=== PATIENT | male | born 1955 | race Caucasian/White ===

== ENCOUNTER 2020-07-28 08:02 | Emergency (ER) | payer BC, MEDICARE ==
[2020-07-28] MEDS ORDERED: fentaNYL 100 MCG/2 ML SDV IVPUSH ONE ×3 (08:16→11:40)
[2020-07-28] MEDS ORDERED: Iopamidol 612 MG/ML 100 ML Bottle IVPUSH ONE (08:28)
[2020-07-28] MEDS ORDERED: HYDROmorphone 1 MG/ML Syringe IVPUSH ONE ×3 (08:37→10:54)
[2020-07-28 08:50] LABS: ANION GAP 12.4 mmol/L (10-20); CHLORIDE,CL 103 mmol/L (98-107); SODIUM,NA 137 mmol/L (136-145)
--- NOTE | 2020-07-28 08:51 | EDM.PDOC ---
ED HPI GENERAL MEDICAL PROBLEM - General Chief Complaint: Chest Pain Stated Complaint: CHEST PAIN Time Seen by Provider: 07/28/20 08:02 Source of Information: Reports: Patient, EMS History Limitations: Reports: No Limitations - History of Present Illness INITIAL COMMENTS - FREE TEXT/NARRATIVE: Patient presents to ER with complaints of acute onset of lower chest and upper abdominal discomfort that radiates to his back. Onset of pain started around 0530 this am. Did feel nauseated, no vomiting. Severe pain, rates at a 10. Had a lung and kidney biopsy on Thursday due to nodule. Was doing very well until this am. Has been eating and drinking well, good bowel movements. No blood noted in his stools. EMS was called, has had continuous pain since their arrival. EKG was done, no ST elevation noted. Does have history of atrial fib. Has been taking Lovenox shots as a bridge for his Coumadin for the procedure. Was given 3 nitro and 4 baby ASA per EMS with no change in his pain. Diaphoretic. States pain is worse with movement, cannot find a position of comfort. Onset: Today, Sudden Duration: Hour(s):, Constant Location: Reports: Chest, Abdomen, Back Quality: Reports: Sharp Severity: Severe Improves with: Reports: None Worsens with: Reports: Movement Associated Symptoms: Reports: Chest Pain, Diaphoresis, Nausea/Vomiting. Denies: Confusion, Cough, Fever/Chills, Malaise, Shortness of Breath, Syncope, Weakness Treatments STAFF PHYSICIAN: Reports: Aspirin, Nitroglycerin Left Chest Pain Score (Numeric/FACES): 10 - Related Data Allergies Allergy/AdvReac Type Severity Reaction Status Date / Time No Known Allergies Allergy Verified 07/28/20 08:35 Home Meds: Home Meds Aspirin [Halfprin] 81 mg PO BRK 02/05/16 [History] Carvedilol [Coreg] 6.25 mg PO BID 02/05/16 [History] Furosemide [Lasix] 40 mg PO DAILY PRN 02/05/16 [History] Latanoprost [Xalatan 0.005% Ophth Soln] 1 drop EYEBOTH BEDTIME 02/05/16 [History] Nitroglycerin [Nitrostat] 0.4 mg SL ASDIRECTED PRN 02/05/16 [History] Penicillin V Potassium 250 mg PO BID 02/05/16 [History] Warfarin [Coumadin] 5 mg PO DAILY 02/05/16 [History] atorvaSTATin [Lipitor] 20 mg PO BEDTIME 02/05/16 [History] lisinopriL [Zestril] 20 mg PO DAILY 02/05/16 [History] Albuterol [Proventil HFA] 2 puff INH Q4H PRN 07/28/20 [History] Phenazopyridine [Pyridium] 200 mg PO TID 07/28/20 [History] Past Medical History Cardiovascular History: Reports: Afib, CAD, High Cholesterol, Hypertension, Other (See Below) Respiratory History: Reports: COPD, Sleep Apnea Genitourinary History: Reports: Other (See Below) (renal mass) - Past Surgical History Cardiovascular Surgical History: Reports: Coronary Artery Bypass, Valve Replacement GI Surgical History: Reports: Hernia Repair/Other Female Surgical History: Reports: Other (See Below) (renal biopsy) Social & Family History - Tobacco Use Smoking Status *Q: Current Every Day Smoker (has not smoked for the last week due to procedure) ED ROS GENERAL - Review of Systems Review Of Systems: See Below Constitutional: Reports: Malaise. Denies: Fever, Chills, Weakness, Fatigue, Decreased Appetite HEENT: Reports: No Symptoms Respiratory: Reports: Pleuritic Chest Pain. Denies: Shortness of Breath Cardiovascular: Reports: Chest Pain. Denies: Edema, Lightheadedness Endocrine: Denies: Fatigue GI/Abdominal: Reports: Abdominal Pain, Nausea. Denies: Constipation, Diarrhea, Vomiting : Denies: Frequency Musculoskeletal: Reports: Back Pain Skin: Reports: No Symptoms Neurological: Reports: No Symptoms ED EXAM, GENERAL - Physical Exam Exam: See Below Exam Limited By: No Limitations General Appearance: Moderate Distress Ears: Normal External Exam, Normal TMs Nose: Normal Inspection, Normal Mucosa, No Blood Throat/Mouth: Normal Inspection, Normal Oropharynx Head: Normocephalic Neck: Normal Inspection, Supple, Non-Tender Respiratory/Chest: No Respiratory Distress, Lungs Clear, Normal Breath Sounds Cardiovascular: Regular Rate, Rhythm GI/Abdominal: Normal Bowel Sounds, Soft, Tender (left upper quadrant/flank with palpation) Extremities: Normal Inspection, No Pedal Edema Neurological: Alert, Oriented Skin Exam: Diaphoretic Course - Vital Signs Last Recorded V/S: Last Vital Signs Temp 97 F 07/28/20 08:05 Pulse 56 L 10/03/20 08:30 Resp 22 H 07/28/20 08:30 BP 136/71 07/28/20 08:30 Pulse Ox 97 07/28/20 08:30 - Orders/Labs/Meds Orders: Active Orders 24 hr Category Date Time Status CULTURE BLOOD [BC] Stat Lab 07/28/20 09:32 Received CULTURE BLOOD [BC] Stat Lab 07/28/20 09:35 Received Sodium Chloride 0.9% [Normal Saline] 1,000 ml Med 07/28/20 09:15 Active IV ASDIRECTED Blood Culture x2 Reflex Set [OM.PC] Stat Oth 07/28/20 09:14 Ordered Transfuse Fresh Frozen Plasma [COMM] Stat Oth 07/28/20 10:36 Ordered Transfuse Fresh Frozen Plasma [COMM] Stat Oth 07/28/20 10:36 Ordered Medication Orders Sodium Chloride (Normal Saline) 1,000 mls @ 999 mls/hr IV ASDIRECTED CHASTITY Last Admin: 07/28/20 09:18 Dose: 150 mls/hr Documented by: JAMIE Labs: Laboratory Tests 07/28/20 07/28/20 07/28/20 Range/Units 08:21 08:25 08:28 WBC 16.8 H (4.0-10.0) x10^3/uL RBC 3.70 L (4.5-6.0) x10^6/uL Hgb 12.0 L (14.0-18.0) g/dL Hct 36.0 L (40.0-52.0) % MCV 97.3 H (78.0-93.0) fL MCH 32.4 H (26.0-32.0) pg MCHC 33.3 (32.0-36.0) g/dL RDW Coeff of Oscar 14.2 (10.0-15.0) % Plt Count 275 (130-400) x10^3/uL Add Manual Diff Yes Neutrophils % (Manual) 73 (50-80) % Band Neutrophils % 2 (0-6) % Lymphocytes % (Manual) 13 L (25-50) % Monocytes % (Manual) 11 (2-11) % Eosinophils % (Manual) 1 (0-4) % Platelet Estimate Adequate PT 28.0 H (9.5-12.3) SEC INR 2.7 (2.0-3.5) D-Dimer, Quantitative 1.69 H (<=0.58) mg/LFEU Sodium (136-145) mmol/L Potassium (3.5-5.1) mmol/L Chloride (98-107) mmol/L Carbon Dioxide (21-32) mmol/L Anion Gap (10-20) mmol/L BUN (7-18) mg/dL Creatinine (0.70-1.30) mg/dL Est Cr Clr Drug Dosing Estimated GFR (MDRD) Glucose (74-106) mg/dL Lactic Acid (0.4-2.0) mmol/L Calcium (8.5-10.1) mg/dL Corrected Calcium (8.5-10.1) mg/dL Total Bilirubin (0.2-1.0) mg/dL AST (15-37) U/L ALT (16-63) U/L Alkaline Phosphatase (46-116) U/L Lactate Dehydrogenase (85-227) U/L Creatine Kinase (39-308) U/L POC Troponin I (0.00-0.08) ng/mL C-Reactive Protein (<=0.9) mg/dL Total Protein (6.4-8.2) g/dL Albumin (3.4-5.0) g/dL Globulin Albumin/Globulin Ratio Blood Type O POSITIVE 07/28/20 07/28/20 07/28/20 Range/Units 08:28 08:28 08:31 WBC (4.0-10.0) x10^3/uL RBC (4.5-6.0) x10^6/uL Hgb (14.0-18.0) g/dL Hct (40.0-52.0) % MCV (78.0-93.0) fL MCH (26.0-32.0) pg MCHC (32.0-36.0) g/dL RDW Coeff of Oscar (10.0-15.0) % Plt Count (130-400) x10^3/uL Add Manual Diff Neutrophils % (Manual) (50-80) % Band Neutrophils % (0-6) % Lymphocytes % (Manual) (25-50) % Monocytes % (Manual) (2-11) % Eosinophils % (Manual) (0-4) % Platelet Estimate PT (9.5-12.3) SEC INR (2.0-3.5) D-Dimer, Quantitative (<=0.58) mg/LFEU Sodium 137 (136-145) mmol/L Potassium 4.4 (3.5-5.1) mmol/L Chloride 103 (98-107) mmol/L Carbon Dioxide 26 (21-32) mmol/L Anion Gap 12.4 (10-20) mmol/L BUN 15 (7-18) mg/dL Creatinine 1.2 (0.70-1.30) mg/dL Est Cr Clr Drug Dosing TNP Estimated GFR (MDRD) > 60 Glucose 173 H (74-106) mg/dL Lactic Acid 2.0 (0.4-2.0) mmol/L Calcium 8.4 L (8.5-10.1) mg/dL Corrected Calcium 9.44 (8.5-10.1) mg/dL Total Bilirubin 1.2 H (0.2-1.0) mg/dL AST 28 (15-37) U/L ALT 34 (16-63) U/L Alkaline Phosphatase 65 (46-116) U/L Lactate Dehydrogenase 609 H (85-227) U/L Creatine Kinase 47 (39-308) U/L POC Troponin I 0.01 (0.00-0.08) ng/mL C-Reactive Protein 19.2 H (<=0.9) mg/dL Total Protein 6.6 (6.4-8.2) g/dL Albumin 2.7 L (3.4-5.0) g/dL Globulin 3.9 Albumin/Globulin Ratio 0.69 Blood Type 07/28/20 Range/Units 11:20 WBC (4.0-10.0) x10^3/uL RBC (4.5-6.0) x10^6/uL Hgb 11.0 L (14.0-18.0) g/dL Hct 33.4 L (40.0-52.0) % MCV (78.0-93.0) fL MCH (26.0-32.0) pg MCHC (32.0-36.0) g/dL RDW Coeff of Oscar (10.0-15.0) % Plt Count (130-400) x10^3/uL Add Manual Diff Neutrophils % (Manual) (50-80) % Band Neutrophils % (0-6) % Lymphocytes % (Manual) (25-50) % Monocytes % (Manual) (2-11) % Eosinophils % (Manual) (0-4) % Platelet Estimate PT (9.5-12.3) SEC INR (2.0-3.5) D-Dimer, Quantitative (<=0.58) mg/LFEU Sodium (136-145) mmol/L Potassium (3.5-5.1) mmol/L Chloride (98-107) mmol/L Carbon Dioxide (21-32) mmol/L Anion Gap (10-20) mmol/L BUN (7-18) mg/dL Creatinine (0.70-1.30) mg/dL Est Cr Clr Drug Dosing Estimated GFR (MDRD) Glucose (74-106) mg/dL Lactic Acid (0.4-2.0) mmol/L Calcium (8.5-10.1) mg/dL Corrected Calcium (8.5-10.1) mg/dL Total Bilirubin (0.2-1.0) mg/dL AST (15-37) U/L ALT (16-63) U/L Alkaline Phosphatase (46-116) U/L Lactate Dehydrogenase (85-227) U/L Creatine Kinase (39-308) U/L POC Troponin I (0.00-0.08) ng/mL C-Reactive Protein (<=0.9) mg/dL Total Protein (6.4-8.2) g/dL Albumin (3.4-5.0) g/dL Globulin Albumin/Globulin Ratio Blood Type Meds: Medications Generic Name Dose Route Start Last Admin Trade Name Freq PRN Reason Stop Dose Admin Sodium Chloride 1,000 mls @ 999 mls/hr 07/28/20 09:15 07/28/20 09:18 Normal Saline IV 150 mls/hr ASDIRECTED CHASTITY Administration Discontinued Medications Generic Name Dose Route Start Last Admin Trade Name Freq PRN Reason Stop Dose Admin Ceftriaxone Sodium 2 gm 07/28/20 09:21 07/28/20 09:45 Rocephin IVPUSH 07/28/20 09:22 2 gm STAT ONE Administration Fentanyl 50 mcg 07/28/20 08:16 07/28/20 08:22 Sublimaze IVPUSH 07/28/20 08:17 50 mcg ONETIME ONE Administration Fentanyl 50 mcg 07/28/20 08:29 07/28/20 08:32 Sublimaze IVPUSH 07/28/20 08:30 50 mcg ONETIME ONE Administration Fentanyl 50 mcg 07/28/20 11:40 07/28/20 11:43 Sublimaze IVPUSH 07/28/20 11:41 50 mcg ONETIME ONE Administration Hydromorphone HCl 1 mg 07/28/20 08:37 07/28/20 08:43 Dilaudid IVPUSH 07/28/20 08:38 1 mg ONETIME ONE Administration Hydromorphone HCl 1 mg 07/28/20 09:37 07/28/20 09:45 Dilaudid IVPUSH 07/28/20 09:38 1 mg ONETIME ONE Administration Hydromorphone HCl 1 mg 07/28/20 10:54 07/28/20 11:01 Dilaudid IVPUSH 07/28/20 10:55 1 mg ONETIME ONE Administration Phytonadione 5 mg/ Sodium 100.5 mls @ 300 mls/hr 07/28/20 10:37 07/28/20 10:53 Chloride IV 07/28/20 10:56 300 mls/hr ONETIME ONE Administration Iopamidol 100 ml 07/28/20 08:28 07/28/20 08:59 Isovue-300 (61%) IVPUSH 07/28/20 08:29 100 ml ONETIME ONE Administration Morphine Sulfate 2 mg 07/28/20 10:11 07/28/20 10:16 Morphine IVPUSH 07/28/20 10:12 2 mg ONETIME ONE Administration - Re-Assessments/Exams Free Text/Narrative Re-Assessment/Exam: 07/28/20 0815 Patient arrives per EMS, diaphoretic. In severe pain. STates pain to left upper quadrant/lower chest region and radiates to back. EKG done, no ST elevation, normal sinus. Lung sounds are clear. Oxygen sat here 92% on room air. Nasal cannula on at 3 liters. Blood pressure stable. See log 0900- Has been given 100 mcg of Fentanyl which did not provide much relief of the pain. Dilaudid given prior to CT. States pain down to a 2-3. Returned from CT in wheelchair, states feels best sitting up. Blood pressure however has dropped. Put back in to the bed, Normal saline ordered. No tachycardia, no fever, blood pressure noted. Labs noted. WBC is elevated at 16.9, CRP 19. ABnormality noted to left kidney on CT, awaiting report. Ceftriaxone ordered after blood cultures received. 0930- Blood pressure has improved. Now 140/82. 0940- Pain worsening. Dilaudid ordered. 07/28/20 0945 [facility]. Does note large hematoma to left kidney with hemorrhage/active bleeding. Patient's pain level difficult to control. Contacted [facility], spoke with nurse. Will push images to [facility]. Await their return call. Patient and updated on report/labs. 07/28/20 1030- Spoke with Dr. Cannon and Dr. Aguilar in regards to patient status. Recommended Vitamin K and fresh frozen plasma. Will initiate. Did agree to accept the patient in transfer. Patient and family advised of recommendations and transfer and agree. Departure - Departure Time of Disposition: 11:02 Disposition: DC/Tfer to [facility] 02 Reason for Transfer *Q: Other (vascular intervention) Condition: Fair Clinical Impression: Perinephric hematoma Referrals: Kari Sheehan DO [Primary Care Provider] - Forms: ED Department Discharge, Interfacility Transfer EMTALA Additional Instructions: Transfer to [facility], Dr. Cannon Sepsis Event Note (ED) - Focused Exam Vital Signs: Vital Signs Temp Pulse Resp BP Pulse Ox 07/28/20 08:30 56 L 22 H 136/71 97 07/28/20 08:05 97 F 56 L 20 135/76 97 - My Orders Last 24 Hours: My Active Orders 07/28/20 09:14 Blood Culture x2 Reflex Set [OM.PC] Stat 07/28/20 09:15 Sodium Chloride 0.9% [Normal Saline] 1,000 ml IV ASDIRECTED 07/28/20 09:32 CULTURE BLOOD [BC] Stat 07/28/20 09:35 CULTURE BLOOD [BC] Stat 07/28/20 10:36 Transfuse Fresh Frozen Plasma [COMM] Stat Transfuse Fresh Frozen Plasma [COMM] Stat - Assessment/Plan Last 24 Hours: My Active Orders 07/28/20 09:14 Blood Culture x2 Reflex Set [OM.PC] Stat 07/28/20 09:15 Sodium Chloride 0.9% [Normal Saline] 1,000 ml IV ASDIRECTED 07/28/20 09:32 CULTURE BLOOD [BC] Stat 07/28/20 09:35 CULTURE BLOOD [BC] Stat 07/28/20 10:36 Transfuse Fresh Frozen Plasma [COMM] Stat Transfuse Fresh Frozen Plasma [COMM] Stat
[2020-07-28] MEDS ORDERED: Sodium Chloride 0.9% 1,000 ML IV SCH (09:15)
[2020-07-28] MEDS ORDERED: cefTRIAXone 2 GM Vial IVPUSH ONE (09:21)
--- NOTE | 2020-07-28 10:06 | CT ---
[id number] CT/CT Chest Abdomen Pelvis W IV EXAM: CHEST ABDOMEN AND PELVIS CT WITH CONTRAST INDICATION: Severe pain, left-sided lung biopsy and kidney biopsy on Thursday. COMPARISON: July 23, [address] DISCUSSION: Moderate right and small left pleural effusions are similar to the previous study. Right pleural-based masses measuring up to 82 x 18 mm suggest metastatic disease and are similar to the prior. There is stable mediastinal adenopathy with customer contact representative distal right paratracheal node measuring 26 x 20 x 30 mm. Mildly enlarged right pericardiophrenic fat pad node measuring about 20 x 14 mm. Moderate right and small left pleural effusions have minimally changed. Partial atelectasis of both lower lobes, increased on the left and stable on the right. The previously described masslike right upper lobe opacity has essentially resolved. Borderline cardiomegaly. Coronary artery calcifications. 16.5 x 13.2 x 11.7 cm probably subcapsular left perinephric hematoma displacing the left kidney anteriorly and compressing the parenchyma. Areas of contrast extravasation, for instance image 128 series 2, is compatible with active hemorrhage. No additional to the perinephric hematoma there is a small amount of hemorrhage infiltrating throughout the remaining retroperitoneum. The hemorrhage obscures the reported renal mass. There are couple of cysts in the upper pole of the left kidney the largest of which is about 41 x 29 mm. The spleen is not identified. There are scattered diverticula of the colon without evidence of diverticulitis. Cholelithiasis without CT evidence of acute cholecystitis. Small cysts upper pole right kidney. Small fat-containing bilateral inguinal hernias. The pancreas, adrenal glands, small bowel and appendix are normal and appendix. No free air or free intraperitoneal fluid is identified. Scattered degenerative changes in the spine. The osseous structures are otherwise unremarkable. Results discussed with ordering provider at about 9:55 AM. IMPRESSION: 1. 16 x 13 x 12 cm left perinephric hematoma with evidence of active hemorrhage. 2. Multiple right pleural-based masses are most consistent with metastatic disease. 3. Stable moderate right and small left pleural effusions. 4. Stable mediastinal adenopathy. Howard Corbin MD 07/28/20 9710 Thank you for allowing us to participate in the care of your patient.
[2020-07-28] MEDS ORDERED: Morphine 2 MG/ML SYRINGE IVPUSH ONE (10:11)
[2020-07-28 18:32] VITALS: BP 124/72; PULSE 63
== END 2020-07-28 11:55 | disposition short-term general hospital (02) ==
LOC: VM.ED 08:02
DX: S37.012A Minor contusion of left kidney, initial encounter (principal); I48.91 Unspecified atrial fibrillation; I25.10 Atherosclerotic heart disease of native coronary artery without angina pectoris; E78.00 Pure hypercholesterolemia, unspecified; I10 Essential (primary) hypertension; J44.9 Chronic obstructive pulmonary disease, unspecified; F17.200 Nicotine dependence, unspecified, uncomplicated; Z95.1 Presence of aortocoronary bypass graft; Z79.82 Long term (current) use of aspirin; Z79.01 Long term (current) use of anticoagulants; Z79.899 Other long term (current) drug therapy; X58.XXXA Exposure to other specified factors, initial encounter
CPT/HCPCS: 36415; 36430; 71260; 74177; 80053; 82550; 83605; 83615; 84484; 85014; 85018; 85025; 85379; 85610; 86140; 86900; 86901; 86927; 87040; 96361; 96365; 96375; 96376; 99285-25; J0696; J1170; J2270; J3010; J3430; J7030; J7050; P9017; Q9967